=== PATIENT | male | born 1985 | race African-American/Black ===

== ENCOUNTER 2018-11-19 22:54 | Emergency (ER) | payer SELFPAY ==
[~2018-11-19] VITALS: Ht 177.8 cm; Wt 81.6 kg
[2018-11-19 22:55] VITALS: BP 147/87
--- NOTE | 2018-11-19 23:11 | PHYS DOC ---
Adult General Chief Complaint Chief Complaint: HYPERTENSION HPI HPI Patient is a 33 year old [f__sex] who presents with [] Review of Systems Review of Systems Constitutional: Denies fever or chills [] Eyes: Denies change in visual acuity, redness, or eye pain [] HENT: Denies nasal congestion or sore throat [] Respiratory: Denies cough or shortness of breath [] Cardiovascular: No additional information not addressed in HPI [] GI: Denies abdominal pain, nausea, vomiting, bloody stools or diarrhea [] : Denies dysuria or hematuria [] Musculoskeletal: Denies back pain or joint pain [] Integument: Denies rash or skin lesions [] Neurologic: Denies headache, focal weakness or sensory changes [] Endocrine: Denies polyuria or polydipsia [] All other systems were reviewed and found to be within normal limits, except as documented in this note. Physical Exam Physical Exam Constitutional: Well developed, well nourished, no acute distress, non-toxic appearance. [] HENT: Normocephalic, atraumatic, bilateral external ears normal, oropharynx moist, no oral exudates, nose normal. [] Eyes: PERRLA, EOMI, conjunctiva normal, no discharge. [] Neck: Normal range of motion, no tenderness, supple, no stridor. [] Cardiovascular:Heart rate regular rhythm, no murmur [] Lungs & Thorax: Bilateral breath sounds clear to auscultation [] Abdomen: Bowel sounds normal, soft, no tenderness, no masses, no pulsatile masses. [] Skin: Warm, dry, no erythema, no rash. [] Back: No tenderness, no CVA tenderness. [] Extremities: No tenderness, no cyanosis, no clubbing, ROM intact, no edema. [] Neurologic: Alert and oriented X 3, normal motor function, normal sensory function, no focal deficits noted. [] Psychologic: Affect normal, judgement normal, mood normal. [] EKG EKG [] Radiology/Procedures Radiology/Procedures [] Course & Med Decision Making Course & Med Decision Making Pertinent Labs and Imaging studies reviewed. (See chart for details) [] Dragon Disclaimer Dragon Disclaimer This electronic medical record was generated, in whole or in part, using a voice recognition dictation system. Departure Departure Impression: Primary Impression: Medical condition not demonstrated Disposition: 01 HOME, SELF-CARE Condition: STABLE Patient Instructions: Hypertension, [id number] Additional Instructions: You were seen with report of a significantly elevated blood pressure. Your blood pressure is now significantly improved. A diagnoses of "Hypertension" is only given after a blood pressure is found to be elevated on three separate occasions. Please follow with your family physician for further evaluation. JEAN-CLAUDE VILLELA DO Nov 19, 2018 23:11
== END 2018-11-19 23:25 | disposition home or self-care (01) ==
LOC: ER 22:54
DX: R03.0 Elevated blood-pressure reading, without diagnosis of hypertension (principal)
CPT/HCPCS: 99281